=== PATIENT | female | born 1960 | race Two or more races ===

== ENCOUNTER 2019-08-06 08:21 | Outpatient (CLI) | payer OTHER | END 2019-08-06 08:31 | disposition home or self-care (01) | LOC: SONOGRAMA 08:21 | DX: N84.0 Polyp of corpus uteri (principal) ==

== ENCOUNTER → 2019-08-20 | Outpatient (CLI) | payer OTHER ==
[~2019-08-20] MED LIST: CIDAFLEX TABLE1 EACH PO; TAMOXIFEN CITRA20 MG PO; VITAMIN C100 MG PO; VITAMIN D10000 UNIT PO; VITAMIN E100 UNI2 PO
== END | disposition home or self-care (01) ==
LOC: LAB SALUS
DX: Z13.220 Encounter for screening for lipoid disorders (principal); Z11.59 Encounter for screening for other viral diseases; Z13.1 Encounter for screening for diabetes mellitus; Z11.4 Encounter for screening for human immunodeficiency virus [HIV]; Z72.51 High risk heterosexual behavior; Z11.3 Encounter for screening for infections with a predominantly sexual mode of transmission

== ENCOUNTER 2019-09-09 07:15 | Day surgery (SDC) | payer OTHER | END 2019-09-09 22:32 | disposition home or self-care (01) | LOC: CIR.AMB 07:15 → ADM 07:30 → CIR.AMB 15:30 | DX: N85.01 Benign endometrial hyperplasia (principal) ==